=== PATIENT | female | born 1940 | race Caucasian/White ===

== ENCOUNTER 2017-12-05 16:31 | Emergency (ER) | payer MEDICARE, OTHER ==
--- NOTE | 2017-12-05 16:56 | EDM.PDOC ---
ED HPI GENERAL MEDICAL PROBLEM - General Chief Complaint: Cardiovascular Problem Stated Complaint: HBP Time Seen by Provider: 12/05/17 16:43 Source of Information: Reports: Patient History Limitations: Reports: No Limitations - History of Present Illness INITIAL COMMENTS - FREE TEXT/NARRATIVE: History of present illness: []Patient has had high blood pressure for the last 5 years that is very difficult to control. She has been referred to cardiology and nephrology and does not feel like she is being treated adequately for her blood pressure. The last 2 mornings it has been very high at 180/84 and then at times throughout the day becomes very low with systolic blood pressure in the 50 to 60s. Patient denies any headache, chest pain, visual changes or back pain. She states she has ruptured a blood vessel in her eye and has received multiple shots in the eye and she does not want this to happen to her other eye. Review of systems: As per history of present illness and below otherwise all systems reviewed and negative. Past medical history: As per history of present illness and as reviewed below otherwise noncontributory. Surgical history: As per history of present illness and as reviewed below otherwise noncontributory. Social history: No reported history of drug or alcohol abuse. Family history: As per history of present illness and as reviewed below otherwise noncontributory. Physical exam: General: Well developed, well nourished in NAD HEENT: Atraumatic, normocephalic, pupils reactive, negative for conjunctival pallor or scleral icterus, mucous membranes moist, throat clear, neck supple, nontender, trachea midline. Lungs: Clear to auscultation, breath sounds equal bilaterally, chest nontender. Heart: S1S2, regular, negative for clicks, rubs, or JVD. Abdomen: Soft, nondistended, nontender. Negative for masses or hepatosplenomegaly. Negative for costovertebral tenderness. Pelvis: Stable nontender. Genitourinary: Deferred. Rectal: Deferred. Extremities: Atraumatic, negative for cords or calf pain. Neurovascular unremarkable. Neuro: Awake, alert, oriented. Cranial nerves II through XII unremarkable. Cerebellum unremarkable. Motor and sensory unremarkable throughout. Exam nonfocal. Diagnostics: []Labs: CBC normal chemistry mildly low sodium 132, troponin negative ,TSH elevated at 6.99 free T4 pending Therapeutics: []Clonidine 0.2 mg by mouth given Impression: []Hypothyroidism, labile hypertension Plan: []Follow-up with primary care for further workup of thyroid Definitive disposition and diagnosis as appropriate pending reevaluation and review of above. - Related Data Allergies Allergy/AdvReac Type Severity Reaction Status Date / Time rosuvastatin [From Crestor] Allergy Diarrhea Verified 12/05/17 16:55 Home Meds: Home Meds Amitriptyline [Elavil] 25 mg PO DAILY 12/05/17 [History] Ascorbic Acid [Vitamin C] 500 mg PO DAILY 12/05/17 [History] Hydrochlorothiazide 25 mg PO DAILY 12/05/17 [History] Lactobacillus Acidophilus [Acidophilus] 1 cap PO DAILY 12/05/17 [History] Levothyroxine [Synthroid] 88 mcg PO DAILY 12/05/17 [History] Losartan [Cozaar] 100 mg PO DAILY 12/05/17 [History] Magnesium 250 mg PO DAILY 12/05/17 [History] Metoprolol Succinate/HCTZ [Metoprolol ER-Hctz 100-12.5 mg] 1 tab PO DAILY [History] Pravastatin [Pravachol] 40 mg PO DAILY 12/05/17 [History] Solifenacin [Vesicare] 5 mg PO DAILY 12/05/17 [History] Spironolactone [Aldactone] 25 mg PO DAILY 12/05/17 [History] ED ROS GENERAL - Review of Systems Review Of Systems: See Below (See history of present illness) ED EXAM, GENERAL - Physical Exam Exam: See Below (See history of present illness) Course - Vital Signs Last Recorded V/S: Last Vital Signs Temp 96.8 F 12/05/17 16:49 Pulse 70 12/05/17 19:12 Resp 16 12/05/17 17:59 BP 172/78 H 12/05/17 19:12 Pulse Ox 100 12/05/17 19:12 - Orders/Labs/Meds Orders: Active Orders 24 hr Category Date Time Status EKG Documentation Completion [RC] STAT Care 12/05/17 17:11 Active TOTAL T3 [REF] Stat Lab 12/05/17 17:19 Received Labs: Laboratory Tests 12/05/17 12/05/17 12/05/17 Range/Units 16:55 17:19 17:19 WBC 6.88 (4.0-11.0) K/uL RBC 4.05 L (4.30-5.90) M/uL Hgb 12.9 (12.0-16.0) g/dL Hct 37.0 (36.0-46.0) % MCV 91.4 (80.0-98.0) fL MCH 31.9 (27.0-32.0) pg MCHC 34.9 (31.0-37.0) g/dL RDW Std Deviation 42.4 (28.0-62.0) fl RDW Coeff of Terence 13 (11.0-15.0) % Plt Count 251 (150-400) K/uL MPV 8.80 (7.40-12.00) fL Neut % (Auto) 64.2 (48.0-80.0) % Lymph % (Auto) 23.0 (16.0-40.0) % Converse % (Auto) 10.5 (0.0-15.0) % Eos % (Auto) 1.6 (0.0-7.0) % Baso % (Auto) 0.7 (0.0-1.5) % Neut # (Auto) 4.4 (1.4-5.7) K/uL Lymph # (Auto) 1.6 (0.6-2.4) K/uL Converse # (Auto) 0.7 (0.0-0.8) K/uL Eos # (Auto) 0.1 (0.0-0.7) K/uL Baso # (Auto) 0.1 (0.0-0.1) K/uL Nucleated RBC % 0.0 /100WBC Nucleated RBCs # 0 K/uL Sodium 132 L (136-145) mmol/L Potassium 4.0 (3.5-5.1) mmol/L Chloride 96 L (98-107) mmol/L Carbon Dioxide 26.6 (21.0-32.0) mmol/L BUN 20 H (7.0-18.0) mg/dL Creatinine 0.8 (0.6-1.0) mg/dL Est Cr Clr Drug Dosing 41.63 mL/min Estimated GFR (MDRD) > 60.0 ml/min Glucose 102 (74-106) mg/dL Calcium 9.3 (8.5-10.1) mg/dL Total Bilirubin 0.2 (0.2-1.0) mg/dL AST 25 (15-37) U/L ALT 24 (14-63) U/L Alkaline Phosphatase 54 (46-116) U/L Troponin I < 0.050 (0.000-0.056) ng/mL Total Protein 7.6 (6.4-8.2) g/dL Albumin 3.9 (3.4-5.0) g/dL Globulin 3.7 H (2.0-3.5) g/dL Albumin/Globulin Ratio 1.1 L (1.3-2.8) Free T4 (0.76-1.46) ng/dL TSH 3rd Generation 6.99 H (0.36-3.74) uIU/mL Urine Color YELLOW Urine Appearance CLEAR Urine pH 7.0 (5.0-8.0) Ur Specific Barry 1.015 (1.001-1.035) Urine Protein NEGATIVE (NEGATIVE) mg/dL Urine Glucose (UA) NEGATIVE (NEGATIVE) mg/dL Urine Ketones NEGATIVE (NEGATIVE) mg/dL Urine Occult Blood NEGATIVE (NEGATIVE) Urine Nitrite NEGATIVE (NEGATIVE) Urine Bilirubin NEGATIVE (NEGATIVE) Urine Urobilinogen 0.2 (<2.0) EU/dL Ur Leukocyte Esterase NEGATIVE (NEGATIVE) Urine RBC 0-1 (0-2/HPF) Urine WBC 0-1 (0-5/HPF) Ur Epithelial Cells RARE (NONE-FEW) Urine Bacteria RARE (NEGATIVE) Urine Mucus LIGHT (NONE-MOD) 12/05/17 Range/Units 17:19 WBC (4.0-11.0) K/uL RBC (4.30-5.90) M/uL Hgb (12.0-16.0) g/dL Hct (36.0-46.0) % MCV (80.0-98.0) fL MCH (27.0-32.0) pg MCHC (31.0-37.0) g/dL RDW Std Deviation (28.0-62.0) fl RDW Coeff of Terence (11.0-15.0) % Plt Count (150-400) K/uL MPV (7.40-12.00) fL Neut % (Auto) (48.0-80.0) % Lymph % (Auto) (16.0-40.0) % Converse % (Auto) (0.0-15.0) % Eos % (Auto) (0.0-7.0) % Baso % (Auto) (0.0-1.5) % Neut # (Auto) (1.4-5.7) K/uL Lymph # (Auto) (0.6-2.4) K/uL Converse # (Auto) (0.0-0.8) K/uL Eos # (Auto) (0.0-0.7) K/uL Baso # (Auto) (0.0-0.1) K/uL Nucleated RBC % /100WBC Nucleated RBCs # K/uL Sodium (136-145) mmol/L Potassium (3.5-5.1) mmol/L Chloride (98-107) mmol/L Carbon Dioxide (21.0-32.0) mmol/L BUN (7.0-18.0) mg/dL Creatinine (0.6-1.0) mg/dL Est Cr Clr Drug Dosing mL/min Estimated GFR (MDRD) ml/min Glucose (74-106) mg/dL Calcium (8.5-10.1) mg/dL Total Bilirubin (0.2-1.0) mg/dL AST (15-37) U/L ALT (14-63) U/L Alkaline Phosphatase (46-116) U/L Troponin I (0.000-0.056) ng/mL Total Protein (6.4-8.2) g/dL Albumin (3.4-5.0) g/dL Globulin (2.0-3.5) g/dL Albumin/Globulin Ratio (1.3-2.8) Free T4 1.23 (0.76-1.46) ng/dL TSH 3rd Generation (0.36-3.74) uIU/mL Urine Color Urine Appearance Urine pH (5.0-8.0) Ur Specific Barry (1.001-1.035) Urine Protein (NEGATIVE) mg/dL Urine Glucose (UA) (NEGATIVE) mg/dL Urine Ketones (NEGATIVE) mg/dL Urine Occult Blood (NEGATIVE) Urine Nitrite (NEGATIVE) Urine Bilirubin (NEGATIVE) Urine Urobilinogen (<2.0) EU/dL Ur Leukocyte Esterase (NEGATIVE) Urine RBC (0-2/HPF) Urine WBC (0-5/HPF) Ur Epithelial Cells (NONE-FEW) Urine Bacteria (NEGATIVE) Urine Mucus (NONE-MOD) Meds: Medications Discontinued Medications Generic Name Dose Route Start Last Admin Trade Name Marcos PRN Reason Stop Dose Admin Clonidine HCl 0.2 mg 12/05/17 18:15 12/05/17 18:13 Catapres PO 0.2 mg DAILY ASHANTI Administration Departure - Departure Time of Disposition: 18:50 Disposition: Home, Self-Care 01 Condition: Good Clinical Impression: Labile blood pressure, Elevated TSH Instructions: Hypertension, [id number] Referrals: Antonio Gruber MD [Primary Care Provider] - Forms: ED Department Discharge Additional Instructions: The following information is given to patients seen in the emergency department who are being discharged to home. This information is to outline your options for follow-up care. We provide all patients seen in our emergency department with a follow-up referral. The need for follow-up, as well as the timing and circumstances, are variable depending upon the specifics of your emergency department visit. If you don't have a primary care physician on staff, we will provide you with a referral. We always advise you to contact your personal physician following an emergency department visit to inform them of the circumstance of the visit and for follow-up with them and/or the need for any referrals to a consulting specialist. The emergency department will also refer you to a specialist when appropriate. This referral assures that you have the opportunity for follow-up care with a specialist. All of these measure are taken in an effort to provide you with optimal care, which includes your follow-up. Under all circumstances we always encourage you to contact your private physician who remains a resource for coordinating your care. When calling for follow-up care, please make the office aware that this follow-up is from your recent emergency room visit. If for any reason you are refused follow-up, please contact the Emergency Department at and asked to speak to the emergency department charge nurse. Follow-up with primary care physician next available appointment for further workup of her thyroid Primary Care [address] [place] [id number] - My Orders Last 24 Hours: My Active Orders 12/05/17 17:11 EKG Documentation Completion [RC] STAT 12/05/17 17:19 TOTAL T3 [REF] Stat - Assessment/Plan Last 24 Hours: My Active Orders 12/05/17 17:11 EKG Documentation Completion [RC] STAT 12/05/17 17:19 TOTAL T3 [REF] Stat
[2017-12-05 17:56] LABS: CHLORIDE,CL 96 mmol/L (98-107); SODIUM,NA 132 mmol/L (136-145)
[2017-12-05] MEDS ORDERED: cloNIDine 0.1 MG Tab PO SCH (18:15)
== END 2017-12-05 19:12 | disposition home or self-care (01) ==
LOC: MW.ED 16:31
DX: R09.89 Other specified symptoms and signs involving the circulatory and respiratory systems (principal); E03.9 Hypothyroidism, unspecified; R79.89 Other specified abnormal findings of blood chemistry; Z79.899 Other long term (current) drug therapy; Z88.8 Allergy status to other drugs, medicaments and biological substances
CPT/HCPCS: 36415; 80053; 81001; 84439; 84443; 84480; 84484; 85025; 99284; A9270

== ENCOUNTER 2019-05-25 14:32 | Emergency (ER) | payer MEDICARE, OTHER ==
[2019-05-25] MEDS ORDERED: traMADol 50 MG Tab PO ONE (15:09)
--- NOTE | 2019-05-25 15:09 | EDM.PDOC ---
ED HPI GENERAL MEDICAL PROBLEM - General Chief Complaint: Back Pain or Injury Stated Complaint: LOW BACK PAIN Time Seen by Provider: 05/25/19 15:06 Source of Information: Reports: Patient - History of Present Illness INITIAL COMMENTS - FREE TEXT/NARRATIVE: HISTORY AND PHYSICAL: History of present illness: [Patient presents with low back pain increasing in severity over the last 6 months, she now has to lean forward for pain to be tolerable and sexually 0 out of 10 with leaning forward 6 out of 10 while standing. No footdrop saddle anesthesia bowel or urine symptoms] Review of systems: As per history of present illness and below otherwise all systems reviewed and negative. Past medical history: As per history of present illness and as reviewed below otherwise noncontributory. Surgical history: As per history of present illness and as reviewed below otherwise noncontributory. Social history: No reported history of drug or alcohol abuse. Family history: As per history of present illness and as reviewed below otherwise noncontributory. Physical exam: HEENT: Atraumatic, normocephalic, pupils reactive, negative for conjunctival pallor or scleral icterus, mucous membranes moist, throat clear, neck supple, nontender, trachea midline. Lungs: Clear to auscultation, breath sounds equal bilaterally, chest nontender. Heart: S1S2, regular, negative for clicks, rubs, or JVD. Abdomen: Soft, nondistended, nontender. Negative for masses or hepatosplenomegaly. Negative for costovertebral tenderness. Pelvis: Stable nontender. Genitourinary: Deferred. Rectal: Deferred. Extremities: Atraumatic, negative for cords or calf pain. Neurovascular unremarkable. Neuro: Awake, alert, oriented. Cranial nerves II through XII unremarkable. Cerebellum unremarkable. Motor and sensory unremarkable throughout. Exam nonfocal. Diagnostics: [Patient has previous lumbar spine performed through [facility] within the last couple of weeks ] A shunt declined another x-ray Therapeutics: []Tramadol All up with primary for consideration of MRI Impression: [Low back pain Symptoms consistent with]Spinal stenosis Definitive disposition and diagnosis as appropriate pending reevaluation and review of above. - Related Data Allergies Allergy/AdvReac Type Severity Reaction Status Date / Time rosuvastatin [From Crestor] Allergy Diarrhea Verified 12/05/17 16:55 Home Meds: Home Meds Amitriptyline [Elavil] 25 mg PO DAILY 12/05/17 [History] Ascorbic Acid [Vitamin C] 500 mg PO DAILY 12/05/17 [History] Lactobacillus Acidophilus [Acidophilus] 1 cap PO DAILY 12/05/17 [History] Levothyroxine [Synthroid] 88 mcg PO DAILY 12/05/17 [History] Losartan [Cozaar] 100 mg PO DAILY 12/05/17 [History] Magnesium 250 mg PO DAILY 12/05/17 [History] Metoprolol Succinate/HCTZ [Metoprolol ER-Hctz 100-12.5 mg] 1 tab PO DAILY [History] Pravastatin [Pravachol] 40 mg PO DAILY 12/05/17 [History] Solifenacin [Vesicare] 5 mg PO DAILY 12/05/17 [History] Spironolactone [Aldactone] 25 mg PO DAILY 12/05/17 [History] hydroCHLOROthiazide [Hydrochlorothiazide] 25 mg PO DAILY 12/05/17 [History] Past Medical History HEENT History: Reports: None Cardiovascular History: Reports: High Cholesterol, Hypertension Respiratory History: Reports: None Gastrointestinal History: Reports: None Genitourinary History: Reports: None [employer] History: Reports: None Musculoskeletal History: Reports: None Neurological History: Reports: None Psychiatric History: Reports: None Endocrine/Metabolic History: Reports: Hypoparathyroidism Hematologic History: Reports: None Immunologic History: Reports: None Oncologic (Cancer) History: Reports: None Dermatologic History: Reports: None - Infectious Disease History Infectious Disease History: Reports: Chicken Pox, Measles, Mumps, Other (See Below) Other Infectious Disease History: childhood - Past Surgical History Head Surgeries/Procedures: Reports: None HEENT Surgical History: Reports: None Cardiovascular Surgical History: Reports: None Respiratory Surgical History: Reports: None GI Surgical History: Reports: None Female Surgical History: Reports: Hysterectomy Endocrine Surgical History: Reports: None Neurological Surgical History: Reports: None Musculoskeletal Surgical History: Reports: None Oncologic Surgical History: Reports: None Dermatological Surgical History: Reports: None Social & Family History - Family History Family Medical History: Noncontributory - Caffeine Use Caffeine Use: Reports: None ED ROS GENERAL - Review of Systems Review Of Systems: See Below ED EXAM, GENERAL - Physical Exam Exam: See Below Departure - Departure Time of Disposition: 15:08 Disposition: Home, Self-Care 01 Condition: Good Clinical Impression: Low back pain - Discharge Information Referrals: Antonio Gruber MD [Primary Care Provider] - Additional Instructions: The following information is given to patients seen in the emergency department who are being discharged to home. This information is to outline your options for follow-up care. We provide all patients seen in our emergency department with a follow-up referral. The need for follow-up, as well as the timing and circumstances, are variable depending upon the specifics of your emergency department visit. If you don't have a primary care physician on staff, we will provide you with a referral. We always advise you to contact your personal physician following an emergency department visit to inform them of the circumstance of the visit and for follow-up with them and/or the need for any referrals to a consulting specialist. The emergency department will also refer you to a specialist when appropriate. This referral assures that you have the opportunity for follow-up care with a specialist. All of these measure are taken in an effort to provide you with optimal care, which includes your follow-up. Under all circumstances we always encourage you to contact your private physician who remains a resource for coordinating your care. When calling for follow-up care, please make the office aware that this follow-up is from your recent emergency room visit. If for any reason you are refused follow-up, please contact the [facility] emergency department at and asked to speak to the emergency department charge nurse.
== END 2019-05-25 15:22 | disposition home or self-care (01) ==
LOC: MW.ED 14:32
DX: M54.5 Low back pain (principal); E78.00 Pure hypercholesterolemia, unspecified; I10 Essential (primary) hypertension; E20.9 Hypoparathyroidism, unspecified; Z79.899 Other long term (current) drug therapy; Z88.8 Allergy status to other drugs, medicaments and biological substances; Z90.710 Acquired absence of both cervix and uterus
CPT/HCPCS: 99283; A9270; 99282